=== PATIENT | male | born 2000 | race Two or more races ===

== ENCOUNTER 2019-06-07 09:13 | Emergency (ER) | payer OTHER ==
--- NOTE | 2019-06-07 09:20 | UC ---
HPI BURN - HPI Summary HPI Summary: 19 yo male presents with LEFT forearm burn. He tells me that on 06/04 he was ironing a shirt and the iron came into contact with his bare left forearm. He washed the area with cool water and soap. Since that time has been applying neosporin and a band-aid daily. Unsure date of last tetanus. States he is not concerned about it, but his girlfriend and his friend wanted him to "get it checked out". No fevers, drainage, or pain. - History of Current Complaint Stated Complaint: BURN ON ARM Time Seen by Provider: 06/07/19 09:20 Hx Obtained From: Patient Onset Severity: Moderate Current Severity: None Pain Intensity: 0 Pain Scale Used: 0-10 Numeric - Allergy/Home Medications Allergies/Adverse Reactions: Allergies Allergy/AdvReac Type Severity Reaction Status Date / Time No Known Allergies Allergy Verified 06/07/19 09:24 Home Medications: Home Medications Escitalopram * [Lexapro 10 mg (NF)] 1 tab PO DAILY 06/07/19 [History Confirmed 06/07/19] PMH/Surg Hx/FS Hx/Imm Hx Psychological History: Anxiety, Depression - Surgical History Surgical History: None - Family History Known Family History: Positive: None - Social History Occupation: Student Lives: With Family Alcohol Use: Occasionally Substance Use Type: None Smoking Status (MU): Never Smoked Tobacco Review of Systems All Other Systems Reviewed And Are Negative: No Constitutional: Positive: Negative Skin: Positive: Other - burn left forearm Respiratory: Positive: Negative Cardiovascular: Positive: Negative Neurological: Positive: Negative Psychological: Positive: Negative Physical Exam - Summary Physical Exam Summary: GENERAL: NAD. WDWN. No pain distress. SKIN: LEFT FOREARM: Volar aspect with horizontal linear 4.0cm length by 5mm width flat blister. No edema, tenderness, discharge, erythema, or streaking. CHEST: No accessory muscle use. Breathing comfortably and in no distress. CV: Pulses intact. Cap refill <2seconds NEURO: Alert. PSYCH: Age appropriate behavior. Triage Information Reviewed: Yes Vital Signs: Vital Signs: Temp Pulse Resp BP Pulse Ox 99.7 F 87 17 106/68 100 06/07/19 09:21 06/07/19 09:21 06/07/19 09:21 06/07/19 09:21 06/07/19 09:21 Vital Signs Reviewed: Yes Burn Calculation - [place] Formula for Fluid Resuscitation 24 -Hour Fluid Replacement: 0.0 Course/Dx Burn - Course Course Of Treatment: Partial thickness burn to left forearm - appears to be healing very well. tdap updated today. Advised to continue dressing changes and be rechecked if symptoms worsen - Diagnoses Provider Diagnosis: Burn of left forearm Discharge ED - Sign-Out/Discharge Documenting (check all that apply): Patient Departure All imaging exams completed and their final reports reviewed: No Studies - Discharge Plan Condition: Stable Disposition: HOME Patient Education Materials: Second Degree Burn (ED), Acute Wound Care (ED) Referrals: No Primary Care Phys,NOPCP [Primary Care Provider] - Additional Instructions: The wound appears to be healing very well today. Continue changing the band-aid daily and keeping the area clean. Your tetanus shot was updated today. Return if you notice any redness, swelling, drainage, or increased pain. - Billing Disposition and Condition Condition: STABLE Disposition: Home
[2019-06-07 09:24] VITALS: BP 106/68
[2019-06-07] MEDS ORDERED: Tetan/Diph/Pertus SYR(Tdap)* 0.5 ML SYR(BOOSTRIX) use SYR contains LATEX IM ONE (09:28)
== END 2019-06-07 09:50 | disposition home or self-care (01) ==
LOC: UCEAST 09:13
DX: T22.012A Burn of unspecified degree of left forearm, initial encounter (principal); Z23 Encounter for immunization; F41.9 Anxiety disorder, unspecified; F32.9 Major depressive disorder, single episode, unspecified; Z79.899 Other long term (current) drug therapy; X15.8XXA Contact with other hot household appliances, initial encounter; Y92.9 Unspecified place or not applicable
CPT/HCPCS: 90471; 90715; 99212; G0463

== ENCOUNTER 2019-07-04 20:06 | Emergency (ER) | payer OTHER ==
[2019-07-04 20:18] VITALS: BP 115/57
--- NOTE | 2019-07-04 20:33 | UC ---
Lower Extremity/Ankle HPI - HPI Summary HPI Summary: 19 yo with left lateral leg pain x 2 days, increased after playing basketball, and he is not typcially active in sports. 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 He has been pain free since that time, but due to present pain pattern he is concerned about recurrence. He has some off and on paresthesias in the distal calf and foot which is reminiscent o fthe presentation of the osteochondroma. ~has had a recent respiratory illness. Has not taken any pain or fever reducing meds today. Overall, his cough has resolved and he was not thinking that he had persistent fever. - History of Current Complaint Stated Complaint: LT LEG PAIN Time Seen by Provider: 07/04/19 20:12 Hx Obtained From: Patient Onset/Duration: Gradual Onset, Lasting Days Severity Initially: Moderate Severity Currently: Moderate Pain Intensity: 5 Aggravating Factor(s): Standing, Ambulation Alleviating Factor(s): Rest, OTC Meds - Risk Factors Gout Risk Factors: Negative DVT Risk Factors: Negative Septic Arthritis Risk Factor: Negative - Allergies/Home Medications Allergies/Adverse Reactions: Allergies Allergy/AdvReac Type Severity Reaction Status Date / Time No Known Allergies Allergy Verified 07/04/19 20:18 Home Medications: Home Medications NK [No Home Medications Reported] 07/04/19 [History Confirmed 07/04/19] PMH/Surg Hx/FS Hx/Imm Hx Previously Healthy: Yes - Surgical History Surgical History: None Surgery Procedure, Year, and Place: tumor in left knee removed - Family History Known Family History: Positive: None, Non-Contributory - Social History Occupation: Student Lives: Dormitory/Roommates Alcohol Use: Occasionally Substance Use Type: None Smoking Status (MU): Never Smoked Tobacco Review of Systems All Other Systems Reviewed And Are Negative: Yes Constitutional: Positive: Fever Skin: Positive: Negative Eyes: Positive: Negative ENT: Positive: Negative Respiratory: Positive: Cough Cardiovascular: Negative: Palpitations, Chest Pain Gastrointestinal: Positive: Negative Genitourinary: Positive: Negative Motor: Positive: Negative Neurovascular: Positive: Negative Musculoskeletal: Positive: Arthralgia, Myalgia Neurological/Mental Status: Negative: Headache, Weakness, Paresthesia Psychological: Positive: Negative Is Patient Immunocompromised?: No Physical Exam Triage Information Reviewed: Yes Appearance: Well-Appearing, Well-Nourished, Pain Distress - mild Vital Signs: Initial Vital Signs Temp 100.5 F 07/04/19 20:13 Pulse 66 07/04/19 20:13 Resp 17 07/04/19 20:13 BP 115/57 07/04/19 20:13 Pulse Ox 97 07/04/19 20:13 ENT: Positive: Pharynx normal, TMs normal. Negative: Tonsillar swelling Neck: Positive: Supple, Nontender, No Lymphadenopathy Respiratory: Positive: Lungs clear, Normal breath sounds, No respiratory distress Cardiovascular: Positive: RRR, No Murmur Abdomen Description: Positive: Nontender, No Organomegaly, Soft Musculoskeletal Exam: Other - normal gait. No apparent swelling or erythema. No joint effusion left knee. Well healed scar lateral thigh, no induration. Tenderness mid left lateral thigh. Musculoskeletal: Positive: Strength Intact, ROM Intact - full rom left hip and left knee, Other: - Tenderness mid left fibula with ill defined fullness in the lateral calf. Neurological Exam: Normal Neurological: Positive: Alert Psychological Exam: Normal Skin Exam: Normal Diagnostics - Radiology No standard instances Radiology Interpretation Completed By: ED Physician - Normal tib fib without bony abnormality; normal knee. No evidence of recurrent osteochondroma. Lower Extremity Course/Dx - Course Course Of Treatment: Discussed normal studies 9although pending radiology review). Will refer to ortho and/or sports med at [facility] for follow up. - Differential Dx/Diagnosis Differential Diagnosis/HQI/PQRI: Contusion, Sprain, Strain, Other - osteochondroma Provider Diagnosis: Left leg pain Discharge ED - Sign-Out/Discharge Documenting (check all that apply): Patient Departure All imaging exams completed and their final reports reviewed: No Studies - Discharge Plan Condition: Stable Disposition: HOME Patient Education Materials: Leg Pain (ED) Referrals: No Primary Care Phys,NOPCP [Primary Care Provider] - Ozzy Tidwell MD [Medical Doctor] - Additional Instructions: The radiologist will review the xrays in the morning, and you will receive a call if there are findings on the study which I did not appreciate. Use ice to the sore areas on the thigh and leg. You can schedule a follow up with orthopedics for evaluation, or with sports med at [facility]. The pattern of pain suggests possible IT band syndrome, which will usually respond to physiical therapy. Use ibuprofen 600mg up to 3 times per day for control of pain. - Billing Disposition and Condition Condition: STABLE Disposition: Home
== END 2019-07-04 21:13 | disposition home or self-care (01) ==
LOC: UCEAST 20:06
DX: M79.605 Pain in left leg (principal); R50.9 Fever, unspecified; R05 Cough; M79.10 Myalgia, unspecified site
CPT/HCPCS: 99201; G0463

== ENCOUNTER 2019-07-18 09:33 | Emergency (ER) | payer OTHER ==
[2019-07-18 09:44] VITALS: BP 109/63
--- NOTE | 2019-07-18 09:52 | UC ---
Upper Extremity HPI - HPI Summary HPI Summary: 19 year old male presents with right shoulder pain x 1 weeks. no trauma, no falls, no injury. States has had pain in left leg, seen here for pain, and has been sleeping on right side which he feels aggravated area. no swelling, bruising. no numbness, tingling. no strength decrease, no loss of [place] strength. Pain worse in AM upon waking, improves as day goes on and moves shoulder. 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 - History of Current Complaint Chief Complaint: UCUpperExtremity Stated Complaint: R SHOULDER PAIN Time Seen by Provider: 07/18/19 09:44 Hx Obtained From: Patient Hx From Patient Unobtainable Due To: Altered Mental Status Onset/Duration: Sudden Onset Severity Initially: Moderate Severity Currently: Moderate Pain Intensity: 8 Pain Scale Used: 0-10 Numeric Location Of Pain: Is Discrete @ - right shoulder, front Character: Sharp Aggravating Factor(s): Movement - forward flexion Associated Signs And Symptoms: Positive: Negative - Allergies/Home Medications Allergies/Adverse Reactions: Allergies Allergy/AdvReac Type Severity Reaction Status Date / Time No Known Allergies Allergy Verified 07/18/19 09:37 Home Medications: Home Medications Ibuprofen TAB* [Motrin TAB* 600 MG] 600 mg PO Q6H PRN 07/18/19 [History Confirmed 07/18/19] Naproxen [Naproxen 250 mg tab] 250 mg PO BID #10 tablet 07/18/19 [Rx] hydrOXYzine HCL TAB* [Atarax 10 MG TAB*] 10 mg PO QID PRN 07/18/19 [History Confirmed 07/18/19] PMH/Surg Hx/FS Hx/Imm Hx Previously Healthy: Yes - Surgical History Surgical History: Yes Surgery Procedure, Year, and Place: tumor in left knee removed 2018 - Family History Known Family History: Positive: None, Non-Contributory - Social History Occupation: Student - [employer] Alcohol Use: None Substance Use Type: None Smoking Status (MU): Never Smoked Tobacco Review of Systems All Other Systems Reviewed And Are Negative: Yes Gastrointestinal: Positive: Negative Genitourinary: Positive: Negative Neurovascular: Positive: Negative Musculoskeletal: Positive: Arthralgia, Decreased ROM, Myalgia Psychological: Positive: Negative Is Patient Immunocompromised?: No Physical Exam Triage Information Reviewed: Yes Appearance: Well-Appearing, No Pain Distress, Well-Nourished Vital Signs: Initial Vital Signs Temp 98.2 F 07/18/19 09:39 Pulse 73 07/18/19 09:39 Resp 16 07/18/19 09:39 BP 109/63 07/18/19 09:39 Pulse Ox 99 07/18/19 09:39 Vital Signs Reviewed: Yes Eyes: Positive: Conjunctiva Clear Musculoskeletal: Positive: Other: - Full ROM of wrist, elbow, shoulders b/l. + supraspinatus testing, + speed test. neg neers, neg savage, neg bear/ belly. Neurological Exam: Normal Neurological: Positive: Alert, Other: - SITLT b/l, [place] strength equal b/l. Psychological Exam: Normal Psychological: Positive: Normal Response To Family Skin Exam: Normal Skin: Negative: Rashes, Breakdown Upper Extremity Course/Dx - Course Course Of Treatment: RC tendonitis, biceps tendonitis -- conservative treatment - Follow up with [facility] within 2-3 days if no improvement for further evaluation - REst, ice 20 mins on/ 20mins off as much as possible - Naproxen twice daily fo 3-5 days to decrease inflammation - Differential Dx/Diagnosis Differential Diagnosis/HQI/PQRI: Bursitis, Strain, Sprain Provider Diagnosis: Rotator cuff tendinitis Discharge ED - Sign-Out/Discharge Documenting (check all that apply): Patient Departure All imaging exams completed and their final reports reviewed: No Studies - Discharge Plan Condition: Good Disposition: HOME Prescriptions: Naproxen [Naproxen 250 mg tab] 250 mg PO BID #10 tablet Patient Education Materials: Rotator Cuff Tendinitis (ED), Biceps Tenodesis (DC ) Referrals: [facility] [Outside] No Primary Care Phys,NOPCP [Primary Care Provider] - Additional Instructions: - Follow up with Alanna within 2-3 days if no improvement for further evaluation - REst, ice 20 mins on/ 20mins off as much as possible - Naproxen twice daily fo 3-5 days to decrease inflammation - Billing Disposition and Condition Condition: GOOD Disposition: Home - Attestation Statements Provider Attestation: I was available for consult. This patient was seen by the JEAN. The patient was not presented to , seen by or examined by wi -Kar Hidalgo MD
== END 2019-07-18 10:12 | disposition home or self-care (01) ==
LOC: UCEAST 09:33
DX: M75.81 Other shoulder lesions, right shoulder (principal)
CPT/HCPCS: 99212; G0463